=== PATIENT | female | born 2000 ===

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

== ENCOUNTER → 2019-04-05 | Outpatient (CLI) | payer BC | END | disposition home or self-care (01) | LOC: LAB 08:15 → LAB SHORT 08:15 | DX: R30.0 Dysuria (principal) | CPT/HCPCS: 87077; 87086; 87186 ==

== ENCOUNTER → 2020-08-27 | Outpatient (CLI) | payer BC | END | disposition home or self-care (01) | LOC: LAB 11:35 → LAB SHORT 11:35 | DX: R30.0 Dysuria (principal) | CPT/HCPCS: 87077; 87086; 87186 ==

== ENCOUNTER → 2021-01-15 | Outpatient (CLI) | payer BC | LOC: LAB 08:06 → LAB SHORT 08:06 | DX: J02.9 Acute pharyngitis, unspecified (principal) | CPT/HCPCS: 87081 ==

== ENCOUNTER → 2021-01-25 | Outpatient (CLI) | payer BC | END | disposition home or self-care (01) | LOC: LAB 09:03 → LAB SHORT 09:03 | DX: R82.79 Other abnormal findings on microbiological examination of urine (principal) | CPT/HCPCS: 87086 ==

== ENCOUNTER → 2023-02-17 | Outpatient (CLI) | payer BC | LOC: LAB 08:28 → LAB SHORT 08:28 | DX: R30.0 Dysuria (principal) | CPT/HCPCS: 87077; 87086; 87186 ==